=== PATIENT | male | born 1960 | race Native Hawaiian/Other Pacific Islander ===

== ENCOUNTER 2017-08-26 09:20 | Inpatient (IN) | payer OTHER ==
[~2017-08-26] VITALS: Ht 162.6 cm; Wt 69.9 kg
[2017-08-26 09:23] VITALS: BP 125/78; TEMP 99
[2017-08-26 09:59] LABS: POTASSIUM 3.7 mmol/L (3.6-5.2)
[2017-08-26 10:00] VITALS: BP 133/79
[2017-08-26 10:12] LABS: PLATELET COUNT 158 K/uL (142-355)
[2017-08-26 10:30] VITALS: BP 138/78
[2017-08-26 14:03] VITALS: BP 130/64; TEMP 100.8; Ht 162.6 cm; Wt 69.9 kg
[2017-08-26 16:00] VITALS: BP 93/51; TEMP 99.9
[2017-08-26 20:00] VITALS: BP 118/68; TEMP 100.3
[2017-08-27] VITALS: BP 82/54; TEMP 99.2
[2017-08-27 04:00] VITALS: BP 94/62; TEMP 98.2
[2017-08-27 06:12] LABS: PLATELET COUNT 189 K/uL (142-355)
[2017-08-27 08:22] VITALS: BP 100/60; BP 93/56; TEMP 99.1
[2017-08-27 12:00] VITALS: BP 100/56; TEMP 98.8
[2017-08-27 16:00] VITALS: BP 115/67; TEMP 99.1
[2017-08-27 20:00] VITALS: BP 123/54; TEMP 99.7
[2017-08-28] VITALS: BP 100/58; TEMP 99.23
[2017-08-28 04:00] VITALS: BP 102/59; TEMP 99.9
[2017-08-28 06:07] LABS: PLATELET COUNT 249 K/uL (142-355)
[2017-08-28 06:22] LABS: POTASSIUM 2.9 mmol/L (3.6-5.2)
[2017-08-28 08:00] VITALS: BP 130/55; TEMP 98.6
[2017-08-28 11:48] VITALS: BP 109/55; TEMP 98.9
[2017-08-28 16:00] VITALS: BP 118/66; TEMP 100
[2017-08-28 20:00] VITALS: BP 126/60; TEMP 98.2
[2017-08-29] VITALS: BP 122/66; TEMP 99.2
[2017-08-29 04:00] VITALS: BP 119/69; TEMP 99.6
[2017-08-29 05:58] LABS: POTASSIUM 3.5 mmol/L (3.6-5.2)
[2017-08-29 06:34] LABS: PLATELET COUNT 302 K/uL (142-355)
[2017-08-29 08:00] VITALS: BP 128/72; TEMP 101.3
[2017-08-29 12:00] VITALS: BP 135/73; TEMP 98.5
[2017-08-29 16:00] VITALS: BP 142/80; TEMP 98.2
== END 2017-08-29 20:30 | disposition short-term general hospital (02) | DRG 178 ==
LOC: ED 09:20 → MED/SURG 10:22
PROVIDERS: ADMIT Family Medicine
DX: J15.212 Pneumonia due to Methicillin resistant Staphylococcus aureus (principal); E87.1 Hypo-osmolality and hyponatremia; K52.89 Other specified noninfective gastroenteritis and colitis; E86.0 Dehydration; E80.6 Other disorders of bilirubin metabolism
CPT/HCPCS: 36415; 36600; 80053; 80202; 81000; 82150; 82805; 83605; 83690; 83735; 83880; 84100; 85007; 85027; 87015; 87040; 87045; 87070; 87077; 87185; 87186; 87205; 87328; 87329; 87804; 87899; 93005; 94640; 94664; 94668; 94760; 96361; 96365; 99284; J1450; J1650; J1885; J1956; J2405; J2930; J3490; Q9963

== ENCOUNTER 2017-08-29 20:34 | Outpatient (CLI) | payer OTHER | END 2017-08-29 21:54 | disposition short-term general hospital (02) | LOC: AMB 20:34 | DX: J15.212 Pneumonia due to Methicillin resistant Staphylococcus aureus (principal); E87.1 Hypo-osmolality and hyponatremia; K52.89 Other specified noninfective gastroenteritis and colitis; E86.0 Dehydration; E80.6 Other disorders of bilirubin metabolism | CPT/HCPCS: A0425; A0427 ==